=== PATIENT | female | born 1990 ===

== ENCOUNTER 2016-11-04 16:58 | Emergency (ER) | payer MEDICAID ==
[2016-11-04 17:07] VITALS: BMI 25.0
[2016-11-04 17:08] VITALS: BP 108/71; PULSE 75; RESP 16; TEMP 98; O2SAT 99
--- NOTE | 2016-11-04 17:26 | C.PDOC ---
History Of Present Illness The patient, a 26 y/o female, presents to the ED for evaluation of itchy lesions to various locations throughout body which were noted around 1 week ago. Patient states the lesions come and go. She states she has not applied anything to the areas because she is not sure what is causing her symptoms. Patient denies fever, chills, pain, shortness of breath, and has no other complaints at this time. Time Seen by Provider: 11/04/16 17:17 Chief Complaint (Nursing): Abnormal Skin Integrity History Per: Patient History/Exam Limitations: no limitations Onset/Duration Of Symptoms: Other (1 week ) Current Symptoms Are (Timing): Still Present Quality Of Symptoms: Itching Additional History Per: Patient Past Medical History Reviewed: Historical Data, Nursing Documentation, Vital Signs Vital Signs: Last Vital Signs Temp 98.0 F 11/04/16 17:07 Pulse 75 11/04/16 17:07 Resp 16 11/04/16 17:07 BP 108/71 11/04/16 17:07 Pulse Ox 99 11/04/16 17:57 - Medical History PMH: No Chronic Diseases Surgical History: No Surg Hx Family History: States: Unknown Family Hx - Social History Hx Tobacco Use: No Hx Alcohol Use: No Hx Substance Use: No - Immunization History Hx Tetanus Toxoid Vaccination: No Hx Influenza Vaccination: No Hx Pneumococcal Vaccination: No Review Of Systems Except As Marked, All Systems Reviewed And Found Negative. Constitutional: Negative for: Fever, Chills Respiratory: Negative for: Shortness of Breath Skin: Positive for: Lesions (itchy, throughout body. no pain ) Physical Exam - Physical Exam Appears: Non-toxic, No Acute Distress Skin: Warm, Dry, Other (+scattered, erythematous papules to left upper extremity , umbilicus and right lower extremity , consistent with insect-bites) Head: Atraumatic, Normacephalic Eye(s): bilateral: Normal Inspection Oral Mucosa: Moist Throat: Normal, No Erythema, No Exudate Neck: Normal ROM, Supple Chest: Symmetrical, No Deformity, No Tenderness Cardiovascular: Rhythm Regular, No Murmur Respiratory: Normal Breath Sounds, No Rales, No Rhonchi, No Wheezing Extremity: Bilateral: Atraumatic, Normal ROM Neurological/Psych: Oriented x3, Normal Speech Gait: Steady ED Course And Treatment O2 Sat by Pulse Oximetry: 99 (on RA) Pulse Ox Interpretation: Normal Medical Decision Making Medical Decision Making: Impression: 26 y/o female with itchy lesions throughout body Progress: On reassessment, patient is resting comfortably, showing no signs of distress, and is stable for discharge with Rx for Benadryl PO and Hydrocortisone cream. Patient is advised to follow up with her PMD within a timely manner for further evaluation or return to ED if symptoms worsen. Disposition Counseled Patient/Family Regarding: Diagnosis, Need For Followup, Rx Given - Disposition Referrals: Manish Barrios MD [Staff Provider] - Disposition: HOME/ ROUTINE Disposition Time: 17:24 Condition: GOOD Additional Instructions: Vaya a sol mdico o la clnica en 2-5 cheek sin falta, para mas evaluacin. [place] los medicamentos cecilia indicado. Volver a la sixto de emergencia en cualquier momento si los sntomas persisten o empeoran. Prescriptions: DiphenhydrAMINE [Benadryl] 25 mg PO Q8 #20 cap Hydrocortisone [Cortisone] 60 gm TP BID #1 cream..g. Instructions: Insect Bite or Sting (ED) Print Language: [place] - POA Present On Arrival: None - Clinical Impression Clinical Impression: Insect bite - PA / ALLIANCE DIRECTOR / Resident Statement MD/DO has reviewed & agrees with the documentation as recorded. - Scribe Statement The provider has reviewed the documentation as recorded by the Scribe (Renu Brewer) All medical record entries made by the Scribe were at my direction and personally dictated by me. I have reviewed the chart and agree that the record accurately reflects my personal performance of the history, physical exam, medical decision making, and the department course for this patient. I have also personally directed, reviewed, and agree with the discharge instructions and disposition.
== END 2016-11-04 17:49 | disposition home or self-care (01) ==
LOC: C.ER 16:58
DX: S40.862A Insect bite (nonvenomous) of left upper arm, initial encounter (principal); S30.861A Insect bite (nonvenomous) of abdominal wall, initial encounter; S80.861A Insect bite (nonvenomous), right lower leg, initial encounter; W57.XXXA Bitten or stung by nonvenomous insect and other nonvenomous arthropods, initial encounter; Y92.9 Unspecified place or not applicable